=== PATIENT | female | born 1955 | race African-American/Black ===

== ENCOUNTER 2018-10-31 18:17 | Inpatient (IN) | payer MEDICARE, MEDICAID ==
[~2018-10-31] VITALS: Ht 162.6 cm; Wt 59.0 kg
[2018-10-31] MEDS ORDERED: NITROGLYCERIN 0.4MG TABLET SL SL PRN (19:00)
[2018-10-31] MEDS ORDERED: ASPIRIN 81MG TABLET PO ONE (19:00)
[2018-10-31 19:58] LABS: BASOPHILS % 0.3 % (0.0-2.0); EOSINOPHILS % 3.4 % (0.0-5.0); HEMATOCRIT. 41.1 % (36.0-48.0); HEMOGLOBIN. 13.9 g/dL (12.0-16.0); MEAN CORPUSCULAR HEMOGLOBIN 30.9 pg (28.0-32.0); MEAN CORPUSCULAR VOLUME 91.5 fL (81.0-99.0); MEAN PLATELET VOLUME 7.9 fl (7.4-10.4); MONOCYTES % 7.3 % (2.0-8.0); PLATELET 222 x1000/uL (130-400); RED BLOOD CELL COUNT 4.49 mill/uL (4.2-5.4); RED CELL DISTRIBUTION WIDTH 14.6 % (11.6-14.6)
[2018-10-31 20:00] LABS: CHLORIDE 111 mEq/L (98-107)
[2018-11-01] MEDS ORDERED: MORPHINE SULFATE 2 MG/ML CPJ (NOT FOR IM USE) IV PRN (01:00)
[2018-11-01] MEDS ORDERED: IPRATROPIUM/ALBUTEROL 0.5-3(2.5)MG/3ML NEB INH PRN (01:00)
[2018-11-01] MEDS ORDERED: ACETAMINOPHEN 650MG/20.3ML UDC GT PRN (01:00)
[2018-11-01] MEDS ORDERED: DIPHENHYDRAMINE 50MG/ML VIAL IV PRN (01:00)
[2018-11-01] MEDS ORDERED: MAGNESIUM/ALUMINUM HYDROXIDE/SIMETHICONE 30ML UDC PO PRN (01:00)
[2018-11-01] MEDS ORDERED: ONDANSETRON HCL 4MG/2ML INJ IV PRN (01:00)
[2018-11-01] MEDS ORDERED: DOCUSATE SODIUM 100MG CAPSULE PO PRN (01:00)
[2018-11-01] MEDS ORDERED: ACETAMINOPHEN 650MG SUPP PR PRN (01:00)
[2018-11-01] MEDS ORDERED: CLONIDINE 0.1MG TABLET PO PRN (01:00)
[2018-11-01] MEDS: HYDROCODONE/ACETAMINOPHEN 5/325MG TABLET PO PRN ×2 (02:53→11:39)
[2018-11-01 06:23] LABS: CLARITY URINE CLEAR (CLEAR); COLOR URINE YELLOW (YELLOW); KETONES URINE NEGATIVE (NEGATIVE); LEUKOCYTE ESTERASE URINE 2+ (NEGATIVE); NITRITE URINE NEGATIVE (NEGATIVE); OCCULT BLOOD URINE NEGATIVE (NEGATIVE); PROTEIN URINE NEGATIVE (NEGATIVE); SPECIFIC GRAVITY URINE 1.025 (1.005-1.030)
[2018-11-01 06:32] LABS: *COCAINE SCREEN URINE NEGATIVE (NEGATIVE); METHADONE URINE SCREEN NEGATIVE (NEGATIVE)
[2018-11-01 06:33] LABS: *AMPHETAMINES SCREEN URINE NEGATIVE (NEGATIVE); *BARBITURATES SCREEN URINE NEGATIVE (NEGATIVE); *BENZODIAZEPINES SCREEN URINE NEGATIVE (NEGATIVE); CANNABINOID URINE SCREEN NEGATIVE (NEGATIVE); OPIATES URINE SCREEN PRESUMTIVE POSITIVE (NEGATIVE); PHENCYCLIDINE URINE SCREEN NEGATIVE (NEGATIVE)
[2018-11-01] MEDS ORDERED: MORPHINE SULFATE 4 MG/ML CPJ (NOT FOR IM USE) IV PRN (07:43)
[2018-11-01] MEDS ORDERED: NA PHOS,M-B/NA PHOS,DI-BA ENEMA 118ML PR PRN (09:00)
[2018-11-01 09:45] VITALS: BP 158/92
[2018-11-01] MEDS: ASPIRIN 81MG TABLET PO SCH (11:00)
[2018-11-01] MEDS: ENOXAPARIN 40MG/0.4ML SYR SUBCUT SCH (11:19)
[2018-11-01] MEDS: GUAIFENESIN 200MG/10ML SUGAR FREE UDC PO PRN (11:19)
[2018-11-01] MEDS ORDERED: INFLUENZA VIRUS VACCINE(AFLURIA) 0.5ML SYR IM ONE (12:00)
[2018-11-01] MEDS ORDERED: PNEUMOCOCCAL 23-VAL P-SAC VAC 0.5 ML IM ONE (12:00)
[2018-11-01 12:22] VITALS: BP 161/101
[2018-11-01 16:12] VITALS: BP 120/71
[2018-11-01 18:18] LABS: BASOPHILS % 0.5 % (0.0-2.0); EOSINOPHILS % 3.2 % (0.0-5.0); HEMATOCRIT. 42.2 % (36.0-48.0); HEMOGLOBIN. 14.1 g/dL (12.0-16.0); LYMPHOCYTES % 29.8 % (20.0-50.0); MEAN CORPUSCULAR HEMOGLOBIN 30.6 pg (28.0-32.0); MEAN CORPUSCULAR VOLUME 91.6 fL (81.0-99.0); MEAN PLATELET VOLUME 7.7 fl (7.4-10.4); MONOCYTES % 9.7 % (2.0-8.0); NEUTROPHILS % 56.8 % (40.0-76.0); PLATELET 203 x1000/uL (130-400); RED CELL DISTRIBUTION WIDTH 14.5 % (11.6-14.6)
[2018-11-01 18:25] LABS: CHLORIDE 106 mEq/L (98-107)
[2018-11-01 18:34] LABS: T4 FREE 1.09 ng/dL (0.76-1.46)
[2018-11-01 18:35] LABS: CREATINE KINASE 86 IU/L (26-192)
[2018-11-01 18:39] LABS: CREATINE KINASE MB FRACTION < 1.0 ng/mL (0.5-3.6)
[2018-11-01] MEDS: SODIUM CHLORIDE 0.9% INJ 3ML FLUSH IVF SCH ×3 (18:54→20:53)
[2018-11-01] MEDS ORDERED: ROPI2TAB7 MT (19:44)
[2018-11-01] MEDS ORDERED: BENA1TAB18 MT (19:44)
[2018-11-01] MEDS ORDERED: AMLO10TA80 MT (19:44)
[2018-11-01] MEDS ORDERED: PROSOL IH (19:44)
[2018-11-01] MEDS ORDERED: BUDE90AE INH (19:44)
[2018-11-01] MEDS ORDERED: GABA-531 MT (19:44)
[2018-11-01 20:00] VITALS: BP 167/96
[2018-11-01] MEDS: ACETAMINOPHEN 325MG TABLET PO PRN (20:49)
[2018-11-01] MEDS: LEVOFLOXACIN 500MG TABLET PO SCH (22:04)
[2018-11-02] VITALS: BP 129/78
[2018-11-02] MEDS: HYDROCODONE/ACETAMINOPHEN 5/325MG TABLET PO PRN ×2 (03:37→22:09)
[2018-11-02 04:00] VITALS: BP 157/96
[2018-11-02 08:11] LABS: BASOPHILS % 0.3 % (0.0-2.0); EOSINOPHILS % 1.3 % (0.0-5.0); HEMATOCRIT. 41.5 % (36.0-48.0); HEMOGLOBIN. 13.9 g/dL (12.0-16.0); LYMPHOCYTES % 17.5 % (20.0-50.0); MEAN CORPUSCULAR HEMOGLOBIN 30.6 pg (28.0-32.0); MEAN CORPUSCULAR VOLUME 91.1 fL (81.0-99.0); MEAN PLATELET VOLUME 8.3 fl (7.4-10.4); MONOCYTES % 8.6 % (2.0-8.0); NEUTROPHILS % 72.3 % (40.0-76.0); PLATELET 198 x1000/uL (130-400); RED BLOOD CELL COUNT 4.56 mill/uL (4.2-5.4); RED CELL DISTRIBUTION WIDTH 14.3 % (11.6-14.6)
[2018-11-02 08:29] VITALS: BP 158/90
[2018-11-02 08:36] LABS: CHLORIDE 104 mEq/L (98-107)
[2018-11-02 08:55] LABS: LDL CHOLESTEROL 74 mg/dL (5-100)
[2018-11-02 08:56] LABS: HDL CHOLESTEROL 42 mg/dL (40-59)
[2018-11-02] MEDS: ENOXAPARIN 40MG/0.4ML SYR SUBCUT SCH ×2 (09:00→09:19)
[2018-11-02] MEDS: ASPIRIN 81MG TABLET PO SCH (09:17)
[2018-11-02] MEDS: GUAIFENESIN 200MG/10ML SUGAR FREE UDC PO PRN (09:26)
[2018-11-02 12:00] VITALS: BP 148/103
[2018-11-02] MEDS ORDERED: LEVO500T2 MT (12:07)
[2018-11-02] MEDS: AZITHROMYCIN 500 MG TABLET PO SCH (13:24)
[2018-11-02] MEDS: SODIUM CHLORIDE 0.9% INJ 3ML FLUSH IVF SCH ×2 (14:00→22:14)
[2018-11-02 16:00] VITALS: BP 159/92
[2018-11-02] MEDS: ACETAMINOPHEN 325MG TABLET PO PRN (16:16)
[2018-11-02 20:00] VITALS: BP 148/83
[2018-11-02] MEDS: LEVOFLOXACIN 500MG TABLET PO SCH (22:08)
[2018-11-03] VITALS: BP 121/67
[2018-11-03 04:00] VITALS: BP 135/77
[2018-11-03] MEDS: HYDROCODONE/ACETAMINOPHEN 5/325MG TABLET PO PRN (04:14)
[2018-11-03 08:00] VITALS: BP 124/68
[2018-11-03] MEDS ORDERED: ACETAMINOPHEN 325MG TABLET PO SCH (08:45)
[2018-11-03] MEDS ORDERED: ACETAMINOPHEN 325MG TABLET PO PRN (08:45)
[2018-11-03] MEDS: ASPIRIN 81MG TABLET PO SCH (08:54)
[2018-11-03] MEDS: ENOXAPARIN 40MG/0.4ML SYR SUBCUT SCH (08:54)
[2018-11-03] MEDS: AZITHROMYCIN 500 MG TABLET PO SCH (09:05)
[2018-11-03] MEDS ORDERED: SODIUM CHLORIDE 0.9% 1,000 ML IV SCH (10:15)
[2018-11-03 12:00] VITALS: BP 127/76
[2018-11-03] MEDS: GUAIFENESIN 200MG/10ML SUGAR FREE UDC PO PRN (13:52)
[2018-11-03 14:00] VITALS: BP 130/70
[2018-11-03 16:52] VITALS: BP 129/80
== END 2018-11-03 18:35 | disposition home or self-care (01) | DRG 313 ==
LOC: ER 18:17 → 7WST 21:30 → EDBEDREQTM 21:32 → EDBEDREQ 21:32 → ENRESERV 11-01 08:08
PROVIDERS: ADMIT Family Medicine; ATTEND Family Medicine
DX: R07.9 Chest pain, unspecified (principal); I10 Essential (primary) hypertension; F17.210 Nicotine dependence, cigarettes, uncomplicated; R82.90 Unspecified abnormal findings in urine; R05 Cough
CPT/HCPCS: 36415; 71045; 71100; 80061; 80305; 82550; 82553; 83036; 83880; 84439; 84443; 84484; 85379; 90686; 90732; 93005; 93306; 93970; 94640; 96372; 96374; 97162; 99285; C1893; J1650; J2270; J7030; J7620

== ENCOUNTER 2021-02-22 12:28 | Emergency (ER) | payer MEDICARE, MEDICAID ==
[~2021-02-22] VITALS: Ht 157.5 cm; Wt 65.0 kg
[~2021-02-22 12:28] MED LIST: AMLO10TA80 MT; BENA1TAB18 MT; BUDE90AE INH; GABA-532 MT; LEVO500T2 MT; PROSOL IH; ROPI2TAB9 MT
[2021-02-22] MEDS ORDERED: MORPHINE SULFATE 4 MG/ML CPJ (NOT FOR IM USE) IV ONE ×2 (13:30→16:00)
[2021-02-22] MEDS ORDERED: KETOROLAC 30MG/ML VIAL IV ONE (13:30)
[2021-02-22 15:00] VITALS: BP 149/93
[2021-02-22] MEDS ORDERED: CELE100C97 MT (15:44)
== END 2021-02-22 16:34 | disposition home or self-care (01) ==
LOC: ER 12:28
DX: M48.02 Spinal stenosis, cervical region (principal); M25.512 Pain in left shoulder; K74.60 Unspecified cirrhosis of liver; I10 Essential (primary) hypertension; F17.210 Nicotine dependence, cigarettes, uncomplicated
CPT/HCPCS: 72141; 73030; 93005; 96374; 96375; 99285; J1885; J2270

== ENCOUNTER → 2021-03-30 | Outpatient (CLI) | payer MEDICARE, MEDICAID ==
[~2021-03-30] MED LIST changes: +CELE100C97 MT
== END | disposition home or self-care (01) ==
LOC: LAB 11:39
PROVIDERS: ATTEND Neurological Surgery
DX: Z01.812 Encounter for preprocedural laboratory examination (principal); Z20.822 Contact with and (suspected) exposure to COVID-19
CPT/HCPCS: 87426

== ENCOUNTER 2021-04-02 08:29 | Inpatient (IN) | payer MEDICARE, MEDICAID ==
[~2021-04-02] VITALS: Ht 157.5 cm; Wt 71.2 kg
[2021-04-02] VITALS (35 sets, daily range): BP systolic 99–274; BP diastolic 9–274
[2021-04-02] MEDS ORDERED: LACTATED RINGERS 1,000 ML IV SCH (09:15)
[2021-04-02] MEDS ORDERED: THROMBIN (BOVINE) 5000 UNITS/VIAL TOP ONE ×2 (09:19→09:20)
[2021-04-02] MEDS ORDERED: LIDOCAINE HCL/EPINEPHRINE 1%-EPI 1:100,000 20 ML VIAL ONE (09:21)
[2021-04-02] MEDS ORDERED: POLYMYXIN B SULFATE 500000 UNITS/VIAL ONE (09:22)
[2021-04-02] MEDS ORDERED: GENTAMICIN SULF 40MG/ML 2ML VIAL ONE (09:29)
[2021-04-02 09:58] LABS: CLARITY URINE CLEAR (CLEAR); COLOR URINE YELLOW (YELLOW); KETONES URINE NEGATIVE (NEGATIVE); LEUKOCYTE ESTERASE URINE NEGATIVE (NEGATIVE); NITRITE URINE NEGATIVE (NEGATIVE); OCCULT BLOOD URINE NEGATIVE (NEGATIVE); PH URINE 6.5 (4.5-8.0); PROTEIN URINE NEGATIVE (NEGATIVE); SPECIFIC GRAVITY URINE 1.019 (1.005-1.030); UROBILINOGEN URINE 0.2 E.U./dL (0.2-1.0)
[2021-04-02] MEDS ORDERED: CYCL10TA7 PO (10:54)
[2021-04-02] MEDS ORDERED: HYDR-4346 PO (10:54)
[2021-04-02] MEDS ORDERED: HYDROMORPHONE HCL/PF 2MG/ML (OR) ONE (12:42)
[2021-04-02] MEDS ORDERED: ROCURONIUM BROMIDE 10MG/ML VIAL 5ML IV ONE (12:42)
[2021-04-02] MEDS ORDERED: DEXAMETHASONE 4MG/ML 1ML VIAL ONE (12:43)
[2021-04-02] MEDS ORDERED: ALBUMIN HUMAN 25GM/100ML (25%) IV ONE (13:16)
[2021-04-02] MEDS ORDERED: CEFAZOLIN SODIUM 1000MG/VIAL IV SCH (14:00)
[2021-04-02] MEDS ORDERED: GLYCOPYRROLATE 0.2 MG/ML 2ML VIAL ONE (14:30)
[2021-04-02] MEDS ORDERED: NEOSTIGMINE METHYLSULFATE 1MG/ML 10 ML VIAL ONE (14:30)
[2021-04-02] MEDS ORDERED: HYDRALAZINE 20MG/ML VIAL ONE ×2 (14:36→14:37)
[2021-04-02] MEDS ORDERED: MORPHINE SULFATE 4 MG/ML CPJ (NOT FOR IM USE) IV PRN (15:00)
[2021-04-02] MEDS ORDERED: DIPHENHYDRAMINE INJ IV PRN (15:15)
[2021-04-02] MEDS ORDERED: NALOXONE INJ IV PRN (15:15)
[2021-04-02] MEDS: DEXT 5%/LACTATED RINGERS 1,000 ML IV SCH (15:22)
[2021-04-02] MEDS: NICARDIPINE 100 MG in SODIUM CHLORIDE 0.9% 60 ML IV PRN (15:23)
[2021-04-02 16:07] LABS: BASOPHILS % 0.2 % (0.0-2.0); EOSINOPHILS % 0.5 % (0.0-5.0); HEMATOCRIT. 37.9 % (36.0-48.0); LYMPHOCYTES % 21.2 % (20.0-50.0); MEAN CORPUSCULAR HEMOGLOBIN 31.4 pg (28.0-32.0); MEAN CORPUSCULAR VOLUME 91.2 fL (81.0-99.0); MEAN PLATELET VOLUME 7.6 fl (7.4-10.4); MONOCYTES % 1.5 % (2.0-8.0); NEUTROPHILS % 76.6 % (40.0-76.0); PLATELET 210 x1000/uL (130-400); RED BLOOD CELL COUNT 4.15 mill/uL (4.2-5.4); RED CELL DISTRIBUTION WIDTH 14.2 % (11.6-14.6)
[2021-04-02 16:15] LABS: CHLORIDE 102 mEq/L (98-107)
[2021-04-02] MEDS ORDERED: IPRATROPIUM/ALBUTEROL 0.5-3(2.5)MG/3ML NEB HHN PRN (17:00)
[2021-04-02] MEDS: DEXAMETHASONE 4MG/ML 1ML VIAL IV SCH ×2 (17:57→23:31)
[2021-04-02] MEDS: CEFAZOLIN 1000MG PREMIX 50 ML IV SCH (17:57)
[2021-04-02] MEDS: HYDROMORPHONE PCA 10MG/50ML IV PRN (18:01)
[2021-04-02] MEDS ORDERED: POTASSIUM CHLORIDE INJ 40 MEQ in DEXT 5% WATER 250 ML IV NR (19:00)
[2021-04-02] MEDS: ONDANSETRON INJ IV PRN (20:59)
[2021-04-03] VITALS (93 sets, daily range): BP systolic 77–143; BP diastolic 46–102
[2021-04-03] MEDS: CEFAZOLIN 1000MG PREMIX 50 ML IV SCH ×3 (01:04→17:36)
[2021-04-03] MEDS: DEXT 5%/LACTATED RINGERS 1,000 ML IV SCH ×3 (04:30→23:40)
[2021-04-03] MEDS: DEXAMETHASONE 4MG/ML 1ML VIAL IV SCH ×3 (05:45→17:36)
[2021-04-03] MEDS: HYDROCHLOROTHIAZIDE 12.5MG CAPSULE PO SCH (08:41)
[2021-04-03] MEDS: AMLODIPINE 10MG TABLET PO SCH (08:41)
[2021-04-03] MEDS: BENAZEPRIL 10MG TABLET PO SCH (08:41)
[2021-04-03] MEDS: NICARDIPINE 100 MG in SODIUM CHLORIDE 0.9% 60 ML IV PRN (08:42)
[2021-04-03 09:45] LABS: CHLORIDE 102 mEq/L (98-107)
[2021-04-03] MEDS: ONDANSETRON INJ IV PRN ×2 (13:39→17:48)
[2021-04-04] VITALS (91 sets, daily range): BP systolic 81–155; BP diastolic 44–95
[2021-04-04 05:51] LABS: CHLORIDE 102 mEq/L (98-107)
[2021-04-04 06:06] LABS: HEMATOCRIT. 38.2 % (36.0-48.0); HEMOGLOBIN. 13.1 g/dL (12.0-16.0); LYMPHOCYTES % 9.1 % (20.0-50.0); MEAN CORPUSCULAR HEMOGLOBIN 30.9 pg (28.0-32.0); MEAN CORPUSCULAR VOLUME 90.3 fL (81.0-99.0); MEAN PLATELET VOLUME 8.9 fl (7.4-10.4); MONOCYTES % 3.5 % (2.0-8.0); NEUTROPHILS % 87.4 % (40.0-76.0); PLATELET 214 x1000/uL (130-400); RED BLOOD CELL COUNT 4.23 mill/uL (4.2-5.4); RED CELL DISTRIBUTION WIDTH 14.1 % (11.6-14.6)
[2021-04-04] MEDS: DIAZEPAM 5 MG/ML 2ML CPJ IV NR ×2 (08:00→08:58)
[2021-04-04] MEDS: HYDROCHLOROTHIAZIDE 12.5MG CAPSULE PO SCH (08:19)
[2021-04-04] MEDS: AMLODIPINE 10MG TABLET PO SCH (08:19)
[2021-04-04] MEDS: BENAZEPRIL 10MG TABLET PO SCH (08:19)
[2021-04-04] MEDS: DEXT 5%/LACTATED RINGERS 1,000 ML IV SCH ×3 (10:15→20:17)
[2021-04-04] MEDS: CLONIDINE 0.1MG TABLET PO PRN (17:53)
[2021-04-04] MEDS: ONDANSETRON INJ IV PRN (23:23)
[2021-04-05] VITALS (52 sets, daily range): BP systolic 124–168; BP diastolic 61–115
[2021-04-05 05:44] LABS: BASOPHILS % 0.2 % (0.0-2.0); HEMATOCRIT. 40.6 % (36.0-48.0); HEMOGLOBIN. 13.9 g/dL (12.0-16.0); LYMPHOCYTES % 16.6 % (20.0-50.0); MEAN CORPUSCULAR VOLUME 90.4 fL (81.0-99.0); MEAN PLATELET VOLUME 8.8 fl (7.4-10.4); MONOCYTES % 5.5 % (2.0-8.0); NEUTROPHILS % 77.7 % (40.0-76.0); PLATELET 211 x1000/uL (130-400); RED BLOOD CELL COUNT 4.49 mill/uL (4.2-5.4)
[2021-04-05 05:50] LABS: CHLORIDE 99 mEq/L (98-107)
[2021-04-05] MEDS: DEXT 5%/LACTATED RINGERS 1,000 ML IV SCH (06:13)
[2021-04-05] MEDS: HYDROMORPHONE PCA 10MG/50ML IV PRN (07:32)
[2021-04-05] MEDS: AMLODIPINE 10MG TABLET PO SCH (08:50)
[2021-04-05] MEDS: HYDROCHLOROTHIAZIDE 12.5MG CAPSULE PO SCH (08:50)
[2021-04-05] MEDS: BENAZEPRIL 10MG TABLET PO SCH (08:51)
[2021-04-05] MEDS: CLONIDINE 0.1MG TABLET PO PRN (10:45)
[2021-04-05] MEDS: HYDROCODONE/ACETAMINOPHEN 5/325MG TABLET PO PRN ×2 (15:51→20:49)
[2021-04-06] VITALS: BP 117/78
[2021-04-06] MEDS: DEXT 5%/LACTATED RINGERS 1,000 ML IV SCH (02:21)
[2021-04-06] MEDS: HYDROCODONE/ACETAMINOPHEN 5/325MG TABLET PO PRN ×2 (02:30→10:37)
[2021-04-06 04:00] VITALS: BP 130/81
[2021-04-06 08:00] VITALS: BP 157/95
[2021-04-06] MEDS: HYDROCHLOROTHIAZIDE 12.5MG CAPSULE PO SCH (08:46)
[2021-04-06] MEDS: BENAZEPRIL 10MG TABLET PO SCH (08:46)
[2021-04-06] MEDS: AMLODIPINE 10MG TABLET PO SCH (08:46)
[2021-04-06 11:22] VITALS: BP 157/75
[2021-04-06 12:00] VITALS: BP 134/80
[2021-04-06] MEDS ORDERED: HYDR12.54 MT (12:05)
[2021-04-06] MEDS ORDERED: BENA10TA74 PO (12:05)
[2021-04-06 12:08] VITALS: BP 157/75
== END 2021-04-06 13:45 | disposition home or self-care (01) | DRG 471 ==
LOC: OR 08:29 → MICUSO 08:30 → 6EST 04-05 13:00
PROVIDERS: ADMIT Neurological Surgery; ATTEND Neurological Surgery
PROC: 0RG20A0 Fusion of 2 or more Cervical Vertebral Joints with Interbody Fusion Device, Anterior Approach, Anterior Column, Open Approach (ICD-10-PCS; principal; 2021-04-02)
PROC: 0RB30ZZ Excision of Cervical Vertebral Disc, Open Approach (ICD-10-PCS; 2021-04-02)
DX: M47.12 Other spondylosis with myelopathy, cervical region (principal); G82.50 Quadriplegia, unspecified; G95.20 Unspecified cord compression; M48.02 Spinal stenosis, cervical region; I10 Essential (primary) hypertension; B19.20 Unspecified viral hepatitis C without hepatic coma; E87.6 Hypokalemia; K74.60 Unspecified cirrhosis of liver; R26.89 Other abnormalities of gait and mobility; M54.12 Radiculopathy, cervical region
CPT/HCPCS: 36415; 72040; 72141; 76000; 80048; 81003; 83735; 85025; 86850; 86900; 87426; 88304; 88311; 93005; 95863; 95925; 95926; 95928; 95929; 97116; 97162; 97166; 97530; C1713; J0360; J0690; J1100; J1170; J1580; J2270; J2405; J2710; J3480; J3490; J7050; J7060; J7121; L0172; P9047; C1762